=== PATIENT | male | born 1975 | race Caucasian/White ===

== ENCOUNTER 2023-03-21 09:24 | Day surgery (SDC) | payer OTHER ==
[2023-03-21] MEDS ORDERED: LACTATED RINGERS 1,000 ML IV ONE ×2 (09:30→12:51)
--- NOTE | 2023-03-21 10:46 | ANESTHESIA ---
Pre-Anesthesia VS, & Labs - Diagnosis screening exam - Procedure colonoscopy Vital Signs: Temp Pulse Resp BP Pulse Ox O2 Flow Rate 36.2 C L 71 18 141/84 H 98 03/21/23 09:30 03/21/23 09:30 03/21/23 09:30 03/21/23 09:30 03/21/23 09:30 Height: 5 ft 10 in Weight (kg): 95 kg Body Mass Index: 30.0 BMI Classification: Obese - NPO >8 hours Home Medications and Allergies Home Medications: Ambulatory Orders No Known Home Medications 03/18/23 No Known Home Medications 03/18/23 Allergies/Adverse Reactions: Allergies Allergy/AdvReac Type Severity Reaction Status Date / Time No Known Drug Allergies Allergy Verified 03/18/23 13:41 Anes History & Medical History - Anesthetic History Anesthesia Complications: reports: No previous complications - Medical History Cardiovascular: reports: None Pulmonary: reports: None Gastrointestinal: reports: None Urinary: reports: None Neuro: reports: None Musculoskeletal: reports: None Endocrine/Autoimmune: reports: None Skin: reports: None Smoking Status: Never smoker History of Cancer?: No - Surgical History General: reports: Other (hernia repair) Eyes Ears Nose Throat (EENT): reports: Other Exam General: Alert, Oriented x3, Cooperative Dental: WNL Mouth Openin Fingerbreadth Neck Mobility: Normal Mallampati classification: III Thyromental Distance: 4-6 cm Mental/Cognitive Status: Alert/Oriented X3, Normal for patient Plan Anesthesia Type: General, Total IV Consent for Procedure(s) Verified and Reviewed: Yes Code Status: Attempt Resuscitation ASA classification: 1-Healthy patient Is this case an emergency?: No
[2023-03-21] MEDS ORDERED: PROPOFOL 500 MG/50 ML 500 MG/50 ML VIAL ONE (11:32)
[2023-03-21 13:00] VITALS: BP 124/63
[2023-03-21 13:19] VITALS: O2SAT 97
--- NOTE | 2023-03-21 14:11 | ANESTHESIA POST OP EVALUATION ---
Anesthesia Post Eval - Post Anesthesia Eval Vitals: Last Vital Signs Temp 36.4 C L 03/21/23 12:51 Pulse 63 03/21/23 13:14 Resp 18 03/21/23 13:14 BP 124/63 03/21/23 13:14 Pulse Ox 97 03/21/23 13:14 O2 Flow Rate CV Function Including HR & BP: Stable Pain Control: Satisfactory Nausea & Vomiting: Negative Mental Status: Baseline Respiratory Status: Airway Patent Hydration Status: Satisfactory Anesthesia Complications: None
== END 2023-03-21 09:25 | disposition home or self-care (01) ==
LOC: SDS 09:24
PROVIDERS: ATTEND Surgery
DX: Z12.11 Encounter for screening for malignant neoplasm of colon (principal); E66.9 Obesity, unspecified; Z68.30 Body mass index [BMI] 30.0-30.9, adult
CPT/HCPCS: 45378; J7120